=== PATIENT | female | born 1945 | race Two or more races ===

== ENCOUNTER 2025-01-22 13:51 | Inpatient (IN) | payer MEDICARE, OTHER ==
[~2025-01-22] VITALS: Ht 157.5 cm; Wt 59.0 kg
[2025-01-22] MEDS ORDERED: CALC0.253 PO (14:25)
[2025-01-22] MEDS ORDERED: ACET-3117 PO (14:25)
[2025-01-22] MEDS ORDERED: BENZ2TAB7 PO (14:25)
[2025-01-22] MEDS ORDERED: BISA10SU95 RC (14:25)
[2025-01-22] MEDS ORDERED: DOCU-141 PO (14:25)
[2025-01-22] MEDS ORDERED: POLY15DR31 EACHEYE (14:25)
[2025-01-22] MEDS ORDERED: ANAS1TAB50 PO (14:25)
[2025-01-22] MEDS ORDERED: CEFTRIAXONE /D5W 50ML IVPB **ER PYXIS IV ONE (14:31)
[2025-01-22] MEDS: IV NORMAL SALINE 1000 ML BAG IV ONE (14:31)
[2025-01-22 14:41] LABS: PLATELET COUNT (AUTO) 193 K/uL (179-408); RED BLOOD CELL COUNT(AUTO) 3.94 MIL/uL (3.63-4.92); RED CELL DISTRIBUTION WIDTH 14.1 % (12.3-17.7); WHITE BLOOD COUNT (AUTO) 4.9 K/uL (3.8-11.8)
[2025-01-22 14:52] LABS: CREATININE 0.6 mg/dL (0.6-1.3); SODIUM SERUM 144 mmol/L (136-145); UREA NITROGEN, BLOOD 21 mg/dL (7-18)
[2025-01-22 15:06] LABS: ASPARTATE AMINOTRANSFERASE 18 U/L (15-37); TOTAL PROTEIN, SERUM 7.1 g/dL (6.4-8.2)
[2025-01-22] MEDS ORDERED: MAG30ORA PO (15:48)
[2025-01-22] MEDS ORDERED: NA P133E4 RC (15:48)
[2025-01-22] MEDS ORDERED: HYDR-3980 PO (15:48)
[2025-01-22] MEDS ORDERED: TRAM50TA2 PO (15:48)
[2025-01-22] MEDS ORDERED: SENN8.6T19 PO (15:48)
[2025-01-22] MEDS ORDERED: MAG360OR3 PO (15:48)
[2025-01-22] MEDS ORDERED: VENL37.591 PO (15:48)
[2025-01-22] MEDS ORDERED: LEVO25TA PO (15:48)
[2025-01-22] MEDS ORDERED: CYAN-28 PO (15:48)
[2025-01-22] MEDS ORDERED: ROPI0.255 PO (15:48)
[2025-01-22] MEDS ORDERED: SIMV10TA98 PO (15:48)
[2025-01-22] MEDS ORDERED: LITH150C PO (15:48)
[2025-01-22] MEDS ORDERED: POLY17PO4 PO (15:48)
[2025-01-22] MEDS ORDERED: GABA300C PO (15:48)
[2025-01-22] MEDS ORDERED: QUET50TA PO (15:48)
[2025-01-22] MEDS ORDERED: TIZA-180 PO (15:48)
[2025-01-22] MEDS ORDERED: DIAZEPAM 10 MG/2 ML DISP.SYRIN IV ONE (16:00)
[2025-01-22] MEDS ORDERED: KETOROLAC TROMETHAMINE 30 MG INJ IVP ONE (16:00)
[2025-01-22] MEDS ORDERED: KETOROLAC TROMETHAMINE 30 MG INJ ONE (16:16)
[2025-01-22 16:55] LABS: *CLARITY,URINE CLOUDY (CLEAR); *COLOR,URINE DARK YELLOW (YELLOW)
[2025-01-22 16:57] LABS: *BILIRUBIN,URIN NEGATIVE (NEGATIVE); *BLOOD, URINE 3+ (NEGATIVE); *KETONES,URINE NEGATIVE (NEGATIVE); *PROTEIN,URINE 2+ (NEGATIVE); UGLUCOSE NEGATIVE (NEGATIVE)
[2025-01-22 16:58] LABS: *UROBILINOGEN,URINE 0.2 E.U./dl (NORMAL); LEUKOCYTE ESTERASE ,URINE 3+ (NEGATIVE); NITRITE, URINE NEGATIVE (NEGATIVE)
[2025-01-22 17:01] LABS: *AMPHETAMINE, URINE NEGATIVE (NEGATIVE); *BARBITURATE, URINE NEGATIVE (NEGATIVE); *BENZODIAZEPINE, URINE NEGATIVE (NEGATIVE); *CANNABINOID, URINE NEGATIVE (NEGATIVE); *COCCAINE, URINE NEGATIVE (NEGATIVE); *OPIATE, URINE NEGATIVE (NEGATIVE); *PHENCYCLIDINE SCREEN,URINE NEGATIVE (NEGATIVE); FENTANYL, URINE NEGATIVE (NEGATIVE)
[2025-01-22] MEDS ORDERED: MAGN400O6 PO (17:11)
[2025-01-22 18:00] VITALS: BP 140/89
[2025-01-22 20:30] VITALS: BP 132/62; TEMP 98.1; O2SAT 97
[2025-01-22] MEDS: SIMVASTATIN 10 MG TABLET PO SCH (21:00)
[2025-01-22] MEDS ORDERED: MAGNESIUM HYDROXIDE 30 ML LIQUID UDC PO PRN (22:45)
[2025-01-22] MEDS ORDERED: MAG HYDROX/AL HYDROX/SIMETH 30 ML LIQUID UDC PO PRN (22:45)
[2025-01-22] MEDS ORDERED: ZOLPIDEM 5 MG TABLET PO PRN (22:45)
[2025-01-23] MEDS: ZOLPIDEM 5 MG TABLET PO PRN (00:14)
[2025-01-23] MEDS: LEVOTHYROXINE SODIUM 25 MCG TABLET PO SCH (06:59)
[2025-01-23 08:28] VITALS: BP 140/62; TEMP 98.1; O2SAT 97
[2025-01-23] MEDS: GABAPENTIN 300 MG CAPSULE PO SCH (08:53)
[2025-01-23] MEDS: ANASTROZOLE 1 MG TABLET PO SCH (08:53)
[2025-01-23] MEDS ORDERED: GABAPENTIN 300 MG CAPSULE PO SCH (09:00)
[2025-01-23] MEDS ORDERED: BENZTROPINE MESYLATE 0.5 MG TABLET PO SCH ×2 (09:00)
[2025-01-23] MEDS: CALCITRIOL 0.25 MCG CAPSULE PO SCH (09:18)
[2025-01-23] MEDS: CIPROFLOXACIN HCL 250 MG TABLET PO SCH (09:18)
[2025-01-23 16:39] VITALS: BP 142/66; TEMP 98.1; O2SAT 97
[2025-01-23 20:00] VITALS: BP 123/69; TEMP 98.5; O2SAT 95
[2025-01-23] MEDS: QUETIAPINE FUMARATE 25 MG TABLET PO SCH (20:05)
[2025-01-23] MEDS: LITHIUM CARBONATE 150 MG CAPSULE PO SCH (20:05)
[2025-01-23] MEDS ORDERED: CIPROFLOXACIN HCL 250 MG TABLET PO SCH (21:00)
[2025-01-23] MEDS ORDERED: LITHIUM CARBONATE 300 MG CAPSULE PO SCH (21:00)
[2025-01-24 08:25] VITALS: BP 102/58; TEMP 98; O2SAT 96
[2025-01-24] MEDS: QUETIAPINE FUMARATE 25 MG TABLET PO SCH (11:27)
[2025-01-24 17:27] VITALS: BP 109/66; TEMP 98.8; O2SAT 96
[2025-01-24 19:38] VITALS: BP 104/60; TEMP 98.3; O2SAT 95
[2025-01-25 08:00] VITALS: BP 117/69; TEMP 98.9; O2SAT 99
[2025-01-25 08:04] LABS: GLUCOSE FASTING 101.0 mg/dL (70-115)
[2025-01-25 16:10] VITALS: BP 123/49; TEMP 98.6; O2SAT 96
[2025-01-25] MEDS ORDERED: ENSURE ENLIVE (VAN) 240 ML LIQUID PO SCH (17:00)
[2025-01-25] MEDS: GLUCERNA SHAKE 237 ML CAN PO SCH (17:22)
[2025-01-25 20:00] VITALS: BP 118/72; TEMP 98.5; O2SAT 96
[2025-01-25] MEDS: QUETIAPINE FUMARATE 25 MG TABLET PO SCH (20:14)
[2025-01-26 09:19] VITALS: BP 101/52; TEMP 97; O2SAT 100
[2025-01-26] MEDS: QUETIAPINE FUMARATE 25 MG TABLET PO SCH (14:01)
[2025-01-26 16:38] VITALS: BP 97/54; TEMP 97.5; O2SAT 97
[2025-01-26 19:57] VITALS: BP 111/60; TEMP 98.3
[2025-01-26] MEDS: QUETIAPINE FUMARATE 25 MG TABLET PO PRN (22:57)
[2025-01-26] MEDS: ACETAMINOPHEN 325 MG TABLET PO PRN (22:58)
[2025-01-27 08:28] VITALS: BP 110/56; TEMP 97.8; O2SAT 96
[2025-01-27 15:09] VITALS: BP 102/60; TEMP 98; O2SAT 96
[2025-01-27 19:47] VITALS: BP 110/58; TEMP 98.1; O2SAT 96
[2025-01-28 08:04] VITALS: BP 118/67; TEMP 98; O2SAT 96
[2025-01-28 16:29] VITALS: BP 111/56; TEMP 98; O2SAT 96
[2025-01-28 19:53] VITALS: BP 100/54; TEMP 98; O2SAT 97
[2025-01-29 07:55] VITALS: BP 110/62; TEMP 98.2; O2SAT 99
[2025-01-29] MEDS: QUETIAPINE FUMARATE 25 MG TABLET PO SCH (13:05)
[2025-01-29 16:09] VITALS: BP 132/82; TEMP 98.4; O2SAT 98
[2025-01-29 19:42] VITALS: BP 105/54; TEMP 98.2; O2SAT 98
[2025-01-30 07:31] VITALS: BP 125/67; TEMP 97; O2SAT 98
[2025-01-30 16:00] VITALS: BP 100/63; TEMP 97; O2SAT 98
[2025-01-30 20:00] VITALS: BP 144/76; TEMP 98.1; O2SAT 94
[2025-01-31 08:51] VITALS: BP 112/53; TEMP 98.2; O2SAT 96
[2025-01-31 16:05] VITALS: BP 114/62; TEMP 98.3; O2SAT 96
[2025-01-31 19:48] VITALS: BP 110/64; TEMP 98.4; O2SAT 96
[2025-01-31] MEDS: QUETIAPINE FUMARATE 25 MG TABLET PO SCH (20:13)
[2025-02-01 09:56] VITALS: BP 102/60; TEMP 98; O2SAT 98
[2025-02-01 15:40] VITALS: BP 107/62; TEMP 98; O2SAT 98
[2025-02-01] MEDS: QUETIAPINE FUMARATE 100 MG TABLET PO SCH (20:06)
[2025-02-01] MEDS ORDERED: QUETIAPINE FUMARATE 25 MG TABLET PO SCH (21:00)
[2025-02-01 21:32] VITALS: BP 118/70; TEMP 98.7; O2SAT 95
[2025-02-02 07:53] VITALS: BP 130/70; TEMP 98.1; O2SAT 96
[2025-02-02] MEDS: QUETIAPINE FUMARATE 25 MG TABLET PO SCH (13:44)
[2025-02-02 20:41] VITALS: BP 113/49; TEMP 98.3; O2SAT 95
[2025-02-03 08:57] VITALS: BP 111/51; TEMP 97.8; O2SAT 98
== END 2025-02-03 13:05 | DRG 885 ==
LOC: ER 13:51 → GPS 20:13
PROVIDERS: ADMIT Psychiatry & Neurology Psychiatry; ATTEND Internal Medicine
DX: F31.9 Bipolar disorder, unspecified (principal); F02.811 Dementia in other diseases classified elsewhere, unspecified severity, with agitation; F02.82 Dementia in other diseases classified elsewhere, unspecified severity, with psychotic disturbance; N39.0 Urinary tract infection, site not specified; G93.40 Encephalopathy, unspecified; G20.A1 Parkinson's disease without dyskinesia, without mention of fluctuations; E03.9 Hypothyroidism, unspecified; J44.9 Chronic obstructive pulmonary disease, unspecified; Z79.899 Other long term (current) drug therapy; Z79.811 Long term (current) use of aromatase inhibitors; Z85.3 Personal history of malignant neoplasm of breast; E11.43 Type 2 diabetes mellitus with diabetic autonomic (poly)neuropathy; I25.10 Atherosclerotic heart disease of native coronary artery without angina pectoris; I10 Essential (primary) hypertension
CPT/HCPCS: 36415; 70030-TC; 71045; 83605; 84484; 85025; 85730; 87040; 87086; A4606; A4663; C1758; J0696; J1885; J1956; J8499